=== PATIENT | female | born 1990 | race African-American/Black ===

== ENCOUNTER 2020-04-05 02:16 | Emergency (ER) | payer SELFPAY ==
[~2020-04-05] VITALS: Ht 170.2 cm; Wt 86.2 kg
--- NOTE | 2020-04-05 02:25 | NUR ---
ED Nurse Note: Pt ambulated to ED from home c/o cough x2 weeks, denies fever. Tested negative for covid 2 weeks ago. ERMD at bedside.
[2020-04-05] MEDS ORDERED: PROMETHAZINE-C118 M1 ORAL (02:53)
[2020-04-05] MEDS ORDERED: PREDNISONE20 MG ORAL (02:53)
--- NOTE | 2020-04-05 02:54 | Emergency Room Report ---
History of Present Illness General Chief Complaint: Upper Respiratory Illness Source: Patient Present Illness HPI This a 29-year-old female who presents with chief plaint of a cough. This been ongoing for 3 weeks now. She was seen initially at urgent care prescribed Z-Maurice , albuterol and Qvar. She also had COVID testing was negative. Symptoms have not improved. She went back and prescribed Robitussin but she is allergic to guaifenesin. She did get Tessalon Perles and that did not help at all. She still having coughing. Coughing is nonproductive nature. Dry in nature. Worse with inspiration. Because of her recent , she will get stress incontinence with coughing. She denies any other complaint. No nausea no vomiting. No fever chills. No exertional component. No chest pain. No history of asthma. Allergies: Coded Allergies: GUAIFENESIN (Verified Allergy, Unknown, 04/05/20) COVID-19 Screening Contact w/high risk pt: No Recent Travel to affected area: No Experienced COVID-19 symptoms?: Yes COVID-19 symptoms experienced: Cough Patient History Past Medical History: see triage record, old chart reviewed Past Surgical History: Pertinent Family History: none Social History: Denies: smoking Last Menstrual Period: unk Now: No Immunizations: other Reviewed Nursing Documentation: PMH: Agreed; PSxH: Agreed Nursing Documentation-PMH Hx Gastrointestinal Problems: Yes - SLE Review of Systems Eye: Denies: eye pain, blurred vision ENT: Denies: ear pain, nose congestion, throat swelling Respiratory: Reports: cough; Denies: shortness of breath Cardiovascular: Denies: chest pain, palpitations Gastrointestinal: Denies: abdominal pain, diarrhea, nausea, vomiting Musculoskeletal: Denies: back pain, joint pain Skin: Denies: rash Neurological: Denies: headache, numbness Endocrine: Denies: increased thirst, increased urine Hematologic/Lymphatic: Denies: easy bruising All Other Systems: negative except mentioned in HPI Physical Exam Vital Signs Date Time Temp Pulse Resp B/P (MAP) Pulse Ox O2 Delivery O2 Flow Rate FiO2 04/05/20 02:22 98.4 93 20 100/68 (79) 95 Room Air Vitals normal Sp02 EP Interpretation: reviewed, normal General Appearance: well appearing, no apparent distress, alert Head: normocephalic, atraumatic Eyes: bilateral eye PERRL, bilateral eye EOMI ENT: hearing grossly normal, normal pharynx Neck: full range of motion, supple, no meningismus Respiratory: chest non-tender, lungs clear, normal breath sounds Cardiovascular #1: regular rate, rhythm, no murmur Gastrointestinal: normal bowel sounds, non tender, no mass, no organomegaly, no bruit, non-distended Musculoskeletal: back normal, normal range of motion, gait/station normal Psychiatric: mood/affect normal Medical Decision Making Diagnostic Impression: Primary Impression: Cough in adult ER Course Patient presents with a cough. No evidence of ACS, PE, pneumonia, dissection to name a few. Patient already had negative COVID testing. She has no other symptoms consistent with COVID. She is otherwise low risk. I see no need for repeat testing. This patient was evaluated in the context of the global COVID-19 pandemic, which necessitated consideration that the patient might be at risk for infection with the [id number] virus that causes COVID-19. Institutional protocols and algorithms that pertain to the evaluation of patients at risk for COVID-19 and the state of rapid change based on information released by multiple regulatory bodies including the CDC and federal and state organizations. These policies and algorithms were followed during the patient' s care in the ED. Last Vital Signs Date Time Temp Pulse Resp B/P (MAP) Pulse Ox O2 Delivery O2 Flow Rate FiO2 04/05/20 02:22 98.4 93 20 100/68 (79) 95 Room Air Status: unchanged Disposition: HOME, SELF-CARE Condition: Stable Scripts Codeine/Promethazine Hcl* (PROMETHAZINE-CODEINE SYRUP*) 118 Ml Syrup 5 ML ORAL Q6H PRN for For Cough, #118 ML 0 Refills Prov: Brown Gudino MD 04/05/20 Prednisone* (PREDNISONE*) 20 Mg Tablet 40 MG ORAL DAILY, #10 TAB Prov: Brown Gudino MD 04/05/20 Additional Instructions: Follow-up with in 7 days. Return if symptoms worsen. Brown Gudino MD April 05, 2020 02:54
[2020-04-05 03:00] VITALS: BP 100/68
--- NOTE | 2020-04-05 03:00 | NUR ---
ER DISCHARGE NOTE: Patient is cleared to be discharged per ERMD, pt is aox4, on room air, with stable vital signs. pt was given dc and prescription instructions, pt was able to verbalize understanding, pt id band removed. pt is able to ambulate with steady gait. pt took all belongings.
== END 2020-04-05 03:00 | disposition home or self-care (01) ==
LOC: EMR 02:45
DX: R05 Cough (principal); Z88.8 Allergy status to other drugs, medicaments and biological substances; M32.9 Systemic lupus erythematosus, unspecified
CPT/HCPCS: 99282